=== PATIENT | female | born 1990 | race Caucasian/White ===

== ENCOUNTER 2017-07-11 04:09 | Emergency (ER) | payer SELFPAY ==
[~2017-07-11] VITALS: Ht 162.6 cm; Wt 111.2 kg
[~2017-07-11 04:09] MED LIST: AGM875T PO; CODE-54 PO; CPR500T PO; IBP600T1 PO
[2017-07-11 04:48] LABS: BILIRUBIN,URINE NEGATIVE (NEGATIVE); CLARITY,URINE CLEAR; COLOR,URINE YELLOW; GLUCOSE, URINE (UA) NEGATIVE (NEGATIVE); KETONES,URINE NEGATIVE (NEGATIVE); LEUKOCYTE ESTERASE ,URINE 1+ (NEGATIVE); NITRITE,URINE NEGATIVE (NEGATIVE); PH,URINE 6 (5-9); PROTEIN,URINE NEGATIVE (NEGATIVE); UROBILINOGEN,URINE NORMAL (NORMAL)
[2017-07-11 05:01] LABS: BACTERIA,URINE FEW /HPF
[2017-07-11 05:04] LABS: AMPHETAMINE SCREEN, URINE NEGATIVE (NEGATIVE); CANNABINOID SCREEN, URINE POSITIVE (NEGATIVE); COCAINE SCREEN URINE NEGATIVE (NEGATIVE); METHAMPHETAMINE SCREEN URINE S NEGATIVE (NEGATIVE); OPIATE SCREEN URINE NEGATIVE (NEGATIVE)
[2017-07-11 05:05] LABS: BARBITURATE SCREEN URINE NEGATIVE (NEGATIVE); BENZODIAZEPINES SCREEN URINE POSITIVE (NEGATIVE); METHADONE STAT NEGATIVE (NEGATIVE); OXYCODONE STAT POSITIVE (NEGATIVE); PROPOXYPHENE STAT NEGATIVE (NEGATIVE); TRICYCLIC ANTIDEPRESSANTS SCRE NEGATIVE (NEGATIVE)
[2017-07-11 05:13] LABS: BASOPHILS # (AUTO) 0.1 10^3/uL (0.0-0.1); BASOPHILS % (AUTO) 1 % (0-10); EOSINOPHILS # (AUTO) 0.2 10^3/uL (0.0-0.3); EOSINOPHILS % (AUTO) 2 % (0-10); HEMATOCRIT 44 % (35-52); LYMPHOCYTES # (AUTO) 3.3 X 10^3 (1.0-4.0); LYMPHOCYTES % (AUTO) 32 % (12-44); MEAN CORPUSCULAR HEMOGLOBIN 31 PG (25-34); MEAN CORPUSCULAR HGB CONC 34 G/DL (32-36); MEAN CORPUSCULAR VOLUME 90 FL (80-99); MEAN PLATELET VOLUME 11.1 FL (7.4-10.4); MONOCYTES % (AUTO) 10 % (0-12); NEUTROPHILS # (AUTO) 5.7 X 10^3 (1.8-7.8); NEUTROPHILS % (AUTO) 55 % (42-75); PLATELET COUNT 264 10^3/uL (130-400); RED BLOOD COUNT 4.85 10^6/uL (4.35-5.85); WHITE BLOOD COUNT 10.3 10^3/uL (4.3-11.0)
[2017-07-11] MEDS ORDERED: TETANUS,DIPTH,PERTUSS P/F (BOOSTRIX) 0.5 ML VIAL IM ONE (05:15)
--- NOTE | 2017-07-11 05:15 | ED Psychosocial ---
General Chief Complaint: Psych/Social Disorder Stated Complaint: PSYCH Nursing Triage Note: BROUGHT IN BY [facility] FOR SUPERFICIAL ABRASIONS TO LEFT UPPER ARM. DENIES SUICIDAL IDEATION AT THIS TIME. Source: patient, police, old records (ALL PMH IS FROM OLD RECORD, PT WILL NOT ANSWER QUESTIONS) Exam Limitations: other (PT EXTREMELY HOSTILE AND UNCOOPERATIVE AND REFUSES TO ANSWER MOST QUESTIONS) (BASSAM MORENO DO) History of Present Illness Date Seen by Provider: Jul 11, 2017 Time Seen by Provider: 04:25 Initial Comments PT ARRIVES VIA EMS WITH [facility] CHIEF CHEMIST EMS WAS CALLED BY PT'S BOYFRIEND / HER CHILD'S FATHER, BECAUSE PT WAS CUTTING HERSELF AND MAKING SUICIDAL THREATS PT WILL NOT ANSWER ANY OF MY QUESTIONS PT EXTREMELY UNCOOPERATIVE WITH ALL ASPECTS OF CARE, REFUSING TO ANSWER QUESTIONS, REFUSING TO REMOVE CLOTHING, REFUSING TO HAVE TESTS DONE, EXTREMELY ARGUMENTATIVE WITH LITERALLY EVERYTHING, BOTH TO ER STAFF AND TO POLICE. LATER SHE ADMITS TO CHIEF CHEMIST THAT SHE CUT HER ARM WITH A NEW FOLDING-TYPE KNIFE. WILL NOT STATE TO ME WHAT HER INTENTION WAS, WHEN SHE WAS CUTTING HERSELF AT ONE POINT, PT STATES "I'M SUICIDAL" BUT WILL NOT ANSWER ANY OTHER QUESTIONS, OR TALK AT ALL AFTER THAT STATEMENT. (BASSAM MORENO DO) Allergies and Home Medications Allergies Coded Allergies: No Known Drug Allergies (Unverified , 11/10/10) Home Medications No Active Prescriptions or Reported Meds Patient Home Medication List Home Medication List Reviewed: Yes (KAY EUBANKS MD) Constitutional: other (PT WILL NOT ANSWER QUESTIONS) (BASSAM MORENO DO) Past [place]-Rdvfgs-[place] Hx Patient Social History Alcohol Use: Rarely Uses Recreational Drug Use: Yes Drug of Choice: XANAX, OPIATES, CANNIBUS Smoking Status: Current Everyday Smoker Type Used: Cigarettes 2nd Hand Smoke Exposure: Yes Recent Foreign Travel: No Contact w/Someone Who Travel: No Recent Infectious Disease Expo: No Recent Hopitalizations: No (BASSAM MORENO DO) Immunizations Up To Date Tetanus Booster (TDap): Less than 5yrs (BASSAM MORENO DO) Seasonal Allergies Seasonal Allergies: No (BASSAM MORENO DO) Past Medical History Surgeries: No Respiratory: No Cardiac: No Neurological: No : No Last Menstrual Period: Jun 27, 2017 Reproductive Disorders: No Genitourinary: No Gastrointestinal: No Musculoskeletal: No Endocrine: No HEENT: No Cancer: No Psychosocial: No Depression Nursing Suicide Risk Notes: PT DENIES SUICIDAL IDEATION, REPORTS CUTTING ARMS TO "IMPROVE CLARITY" STATES SHE "DOES NOT WANT TO KILL HERSELF BECAUSE SHE HAS KIDS" Integumentary: Yes (CUTTER) Recent Skin Changes Blood Disorders: No (BASSAM MORENO DO) Physical Exam Vital Signs Vital Signs - First Documented 07/11/17 04:13 Temp 97.8 Pulse 89 Resp 18 B/P (MAP) 160/110 (127) Pulse Ox 99 O2 Delivery Room Air (KAY EUBANKS MD) Vital Signs Capillary Refill : Less Than 3 Seconds (BASSAM MORENO DO) General Appearance: WD/WN, no apparent distress, other (BEHAVIOR NOTED ABOVE ) HEENT: PERRL/EOMI, other (WEARING GLASSES) Neck: non-tender, full range of motion, normal inspection Respiratory: normal breath sounds, no respiratory distress, no accessory muscle use Cardiovascular: normal peripheral pulses, regular rate, rhythm, no murmur Gastrointestinal: non tender, soft Extremities: normal range of motion, normal capillary refill, other (MULTIPLE, LINEAR, PARALLEL CUTS TO LEFT UPPER ARM. ALL RELATIVELY SUPERFICIAL AND ARE NOT BLEEDING. 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, no motor/sensory deficits, alert, oriented x 3 Appearance/Memory: other (WILL NOT ANSWER QUESTIONS) Behavior/Eye Contact: refused to answer, threatening eye contact, belligerent, uncooperative, other (VERY HOSTILE) Thoughts/Hallucinations: no apparent hallucination Skin: normal color, warm/dry, tattoos/piercings (MULTIPLE TATTOOS), other ( CUTS TO LEFT UPPER ARM NOTED ABOVE) (BASSAM MORENO DO) Progress/Results/Core Measures Lab Results Laboratory Tests Test 07/11/17 04:15 07/11/17 05:03 Range/Units Urine Color YELLOW Urine Clarity CLEAR Urine pH 6 5-9 Urine Specific [place] 1.020 1.016-1.022 Urine Protein NEGATIVE NEGATIVE Urine Glucose (UA) NEGATIVE NEGATIVE Urine Ketones NEGATIVE NEGATIVE Urine Nitrite NEGATIVE NEGATIVE Urine Bilirubin NEGATIVE NEGATIVE Urine Urobilinogen NORMAL NORMAL MG/DL Urine Leukocyte Esterase 1+ H NEGATIVE Urine RBC (Auto) NEGATIVE NEGATIVE Urine RBC NONE /HPF Urine WBC 5-10 H /HPF Urine Squamous Epithelial Cells 5-10 /HPF Urine Crystals NONE /LPF Urine Bacteria FEW H /HPF Urine Casts NONE /LPF Urine Mucus SMALL H /LPF Urine Culture Indicated YES Urine Opiates Screen NEGATIVE NEGATIVE Urine Oxycodone Screen POSITIVE H NEGATIVE Urine Methadone Screen NEGATIVE NEGATIVE Urine Propoxyphene Screen NEGATIVE NEGATIVE Urine Barbiturates Screen NEGATIVE NEGATIVE Ur Tricyclic Antidepressants Screen NEGATIVE NEGATIVE Urine Phencyclidine Screen NEGATIVE NEGATIVE Urine Amphetamines Screen NEGATIVE NEGATIVE Urine Methamphetamines Screen NEGATIVE NEGATIVE Urine Benzodiazepines Screen POSITIVE H NEGATIVE Urine Cocaine Screen NEGATIVE NEGATIVE Urine Cannabinoids Screen POSITIVE H NEGATIVE White Blood Count 10.3 4.3-11.0 10^3/uL Red Blood Count 4.85 4.35-5.85 10^6/uL Hemoglobin 15.0 11.5-16.0 G/DL Hematocrit 44 35-52 % Mean Corpuscular Volume 90 80-99 FL Mean Corpuscular Hemoglobin 31 25-34 PG Mean Corpuscular Hemoglobin Concent 34 32-36 G/DL Red Cell Distribution Width 15.0 H 10.0-14.5 % Platelet Count 264 130-400 10^3/uL Mean Platelet Volume 11.1 H 7.4-10.4 FL Neutrophils (%) (Auto) 55 42-75 % Lymphocytes (%) (Auto) 32 12-44 % Monocytes (%) (Auto) 10 0-12 % Eosinophils (%) (Auto) 2 0-10 % Basophils (%) (Auto) 1 0-10 % Neutrophils # (Auto) 5.7 1.8-7.8 X 10^3 Lymphocytes # (Auto) 3.3 1.0-4.0 X 10^3 Monocytes # (Auto) 1.0 0.0-1.0 X 10^3 Eosinophils # (Auto) 0.2 0.0-0.3 10^3/uL Basophils # (Auto) 0.1 0.0-0.1 10^3/uL Sodium Level 139 135-145 MMOL/L Potassium Level 3.8 3.6-5.0 MMOL/L Chloride Level 105 98-107 MMOL/L Carbon Dioxide Level 26 21-32 MMOL/L Anion Gap 8 5-14 MMOL/L Blood Urea Nitrogen 14 7-18 MG/DL Creatinine 0.70 0.60-1.30 MG/DL Estimat Glomerular Filtration Rate > 60 BUN/Creatinine Ratio 20 Glucose Level 96 70-105 MG/DL Calcium Level 9.7 8.5-10.1 MG/DL Total Bilirubin 0.5 0.1-1.0 MG/DL Aspartate Amino Transf (AST/SGOT) 14 5-34 U/L Alanine Aminotransferase (ALT/SGPT) 17 0-55 U/L Alkaline Phosphatase 53 40-136 U/L Total Protein 7.2 6.4-8.2 GM/DL Albumin 4.6 H 3.2-4.5 GM/DL TSH [place] Testing 0.90 0.35-4.94 UIU/ML Serum Test, Qualitative NEGATIVE NEGATIVE Salicylates Level < 5.0 L 5.0-20.0 MG/DL Acetaminophen Level < 10 L 10-30 UG/ML Serum Alcohol < 10 <10 MG/DL (KAY EUBANKS MD) Vital Signs/I&O 07/11/17 07/11/17 04:13 06:01 Temp 97.8 Pulse 89 78 Resp 18 16 B/P (MAP) 160/110 (127) 133/99 (110) Pulse Ox 99 O2 Delivery Room Air Room Air (KAY EUBANKS MD) Blood Pressure Mean: 127 Progress Note : Progress Note PT CONTINUED TO BE BELLIGERENT AND EXTREMELY UNCOOPERATIVE THROUGHOUT ENTIRE ER STAY AND EVENTUALLY, POLICE HANDCUFFED HER TO THE ER CART, DUE TO HER BEHAVIOR CHIEF CHEMIST REMAINED IN ROOM WITH PT AT ALL TIMES. PT ADAMANTLY REFUSES TREATMENT OF UTI. PT ADVISED OF RISKS INCLUDING SEPSIS, ORGAN FAILURE AND , AND SHE STILL ADAMANTLY REFUSES TREATMENT. (BASSAM MORENO DO) Progress Note : Progress Note 0945: [facility] team has chart and is reviewing and will do doctor to doctor shortly. Patient remains in handcuffs. She has been alternating between resting versus questioning versus argumentative and is occasionally angry. Law enforcement remained throughout stay and will provide transport given patient's behavior. Patient declined breakfast meal that was offered. 1042: I did speak with the accepting physician at [facility] in [place], [place]. He has accepted the patient for transfer. We did discuss the UA results and we will send culture results when these are completed to them for antibiotics as needed. 1112: Report to nursing by nursing. Transfer via law enforcement. (KAY EUBANKS MD) Initial ECG Impression Date: Jul 11, 2017 Initial ECG Impression Time: 04:49 Initial ECG Rate: 77 (BASSAM MORENO DO) Departure Communication (Admissions) 0553[facility], WILL FAX THEM PT'S INFO. 0705--[facility]. SPOKE WITH MEREDITH. THEY REQUEST ADDITIONAL PHYSICIAN NOTES, AND WILL CALL BACK WHEN THEY HAVE REVIEWED ALL. 0743--CALLED [facility], TO VERIFY THAT THEY NOW HAVE ALL NEEDED INFORMATION, THEY WILL CALL ME BACK WITH STATUS. 0800--CARE TURNED OVER TO DR. EUBANKS. ACCEPTANCE TO [facility] PENDING. [employer] OFFICERS IN ER WAITING TO TRANSPORT PT. (BASSAM MORENO DO) Impression Primary Impression: Intentional self-harm Additional Impressions: Illicit drug use BELLIGERENT BEHAVIOR UTI (urinary tract infection) Qualified Codes: N30.00 - Acute cystitis without hematuria Disposition: XFER SHT-TRM HOSP Condition: Stable Transfer Transfer Facility: [place], [place], Dr Gibbs accepting Method of Transfer: Law Enforcement (KAY EUBANKS MD) Departure-Patient Inst. Referrals: SUSAN AMADOR MD (PCP/Family) Primary Care Physician Scripts No Active Prescriptions or Reported Meds BASSAM MORENO DO Jul 11, 2017 05:15 KAY EUBANKS MD Jul 11, 2017 09:55
[2017-07-11 05:35] LABS: ALANINE AMINOTRANSFERASE 17 U/L (0-55); ALBUMIN 4.6 GM/DL (3.2-4.5); ALKALINE PHOSPHATASE 53 U/L (40-136); BILIRUBIN,TOTAL 0.5 MG/DL (0.1-1.0); BUN/CREATININE RATIO 20; CALCIUM 9.7 MG/DL (8.5-10.1); CARBON DIOXIDE 26 MMOL/L (21-32); CHLORIDE 105 MMOL/L (98-107); GFR ESTIMATED > 60; GLUCOSE 96 MG/DL (70-105); POTASSIUM 3.8 MMOL/L (3.6-5.0); SALICYLATE < 5.0 MG/DL (5.0-20.0); SODIUM 139 MMOL/L (135-145); TOTAL PROTEIN 7.2 GM/DL (6.4-8.2)
[2017-07-11 05:41] LABS: ACETAMINOPHEN < 10 UG/ML (10-30)
[2017-07-11 06:01] VITALS: BP 133/99
[2017-07-11 11:16] VITALS: BP 136/89
== END 2017-07-11 11:16 | disposition short-term general hospital (02) ==
LOC: EDUNIT# 04:09 → ER 04:11
DX: S40.812A Abrasion of left upper arm, initial encounter (principal); N39.0 Urinary tract infection, site not specified; F91.9 Conduct disorder, unspecified; F11.90 Opioid use, unspecified, uncomplicated; F12.90 Cannabis use, unspecified, uncomplicated; Z77.22 Contact with and (suspected) exposure to environmental tobacco smoke (acute) (chronic); X78.1XXA Intentional self-harm by knife, initial encounter
CPT/HCPCS: 36415; 80053; 80306; 80320; 80329; 81000; 84443; 84703; 85025; 87088; 93005